=== PATIENT | male | born 1940 | race Caucasian/White ===

== ENCOUNTER 2017-03-12 23:31 | Inpatient (IN) | payer SELFPAY ==
[~2017-03-12] VITALS: Ht 152.4 cm; Wt 68.5 kg
[2017-03-13] MEDS ORDERED: METHYLPREDNISOLONE SOD SUCC 125 MG/2 ML VIAL IV STA (02:29)
[2017-03-13] MEDS ORDERED: ALBUTEROL (0.083%) 2.5MG/3ML NEB HHN STA (02:29)
[2017-03-13] MEDS ORDERED: IPRATROPIUM BROMIDE (0.02%) 0.5MG/2.5ML NEB HHN STA (02:29)
[2017-03-13 02:45] LABS: BASOPHILS % 0.6 % (0.0-2.0); EOSINOPHILS % 0.6 % (0.0-5.0); HEMATOCRIT. 33.3 % (42.0-52.0); HEMOGLOBIN. 11.6 g/dL (14.0-18.0); LYMPHOCYTES % 11.1 % (20.0-50.0); MEAN CORPUSCULAR HEMOGLOBIN 36.2 pg (28.0-32.0); MEAN CORPUSCULAR VOLUME 103.8 fL (80.0-94.0); MEAN PLATELET VOLUME 7.9 fl (7.4-10.4); MONOCYTES % 10.1 % (2.0-8.0); NEUTROPHILS % 77.6 % (40.0-76.0); PLATELET 137 x1000/uL (130-400); RED BLOOD CELL COUNT 3.21 mill/uL (4.7-6.1); RED CELL DISTRIBUTION WIDTH 13.9 % (11.6-14.6)
[2017-03-13 03:04] LABS: CARBON DIOXIDE 24 mEq/L (21-32); TROPONIN I 0.03 ng/mL (0.00-0.04)
[2017-03-13 03:11] LABS: CHLORIDE 108 mEq/L (98-107)
[2017-03-13] MEDS ORDERED: DIPHENHYDRAMINE 50MG/ML VIAL IV PRN (09:30)
[2017-03-13] MEDS ORDERED: ONDANSETRON HCL 4MG/2ML VIAL IV PRN (09:30)
[2017-03-13] MEDS ORDERED: ACETAMINOPHEN 325MG TABLET PO PRN (09:30)
[2017-03-13] MEDS ORDERED: MAGNESIUM/ALUMINUM HYDROXIDE/SIMETHICONE 30ML UDC PO PRN (09:30)
[2017-03-13] MEDS ORDERED: LORAZEPAM 0.5MG TABLET PO PRN (09:30)
[2017-03-13] MEDS ORDERED: IPRATROPIUM/ALBUTEROL 0.5-3(2.5)MG/3ML NEB INH PRN (09:30)
[2017-03-13] MEDS ORDERED: DOCUSATE SODIUM 100MG CAPSULE PO PRN (09:30)
[2017-03-13] MEDS ORDERED: NA PHOS,M-B/NA PHOS,DI-BA ENEMA 118ML PR PRN (09:30)
[2017-03-13] MEDS ORDERED: NITROGLYCERIN 0.4MG TABLET SL SL PRN (09:30)
[2017-03-13] MEDS ORDERED: TRAMADOL 50MG TABLET PO PRN (09:30)
[2017-03-13] MEDS ORDERED: CLONIDINE 0.1MG TABLET PO PRN (09:30)
[2017-03-13] MEDS ORDERED: DILTIAZEM HCL 60MG TABLET PO SCH (10:45)
[2017-03-13 12:20] LABS: T4 FREE 1.32 ng/dL (0.76-1.46)
[2017-03-13 12:30] VITALS: BP 100/82
[2017-03-13] MEDS: ENOXAPARIN 40MG/0.4ML SYR SUBCUT SCH (12:51)
[2017-03-13] MEDS ORDERED: ATOR20TA65 PO (14:02)
[2017-03-13] MEDS ORDERED: CARV25TA47 PO (14:02)
[2017-03-13] MEDS ORDERED: ASPI-1158 PO (14:02)
[2017-03-13] MEDS ORDERED: WARF2TAB55 PO (14:02)
[2017-03-13] MEDS ORDERED: LISI40TA4 PO (14:02)
[2017-03-13 15:55] LABS: CREATINE KINASE MB FRACTION 1.8 ng/mL (0.5-3.6); TROPONIN I 0.02 ng/mL (0.00-0.04)
[2017-03-13 16:00] VITALS: BP 124/91
[2017-03-13 16:43] LABS: VITAMIN B12 SERUM > 2000 pg/mL (211-911)
[2017-03-13] MEDS: FUROSEMIDE 40MG/4ML VIAL IVP SCH (17:16)
[2017-03-13] MEDS: DILTIAZEM HCL 60MG TABLET PO SCH (17:16)
[2017-03-13 20:00] VITALS: BP 133/74
[2017-03-13] MEDS: FAMOTIDINE 20MG/2ML VIAL IV SCH (20:51)
[2017-03-13] MEDS: SPIRONOLACTONE 25MG TABLET PO SCH (20:52)
[2017-03-13] MEDS ORDERED: ZOLPIDEM TARTRATE 5MG TABLET PO PRN (21:00)
[2017-03-14] VITALS: BP 115/76
[2017-03-14 00:56] LABS: CREATINE KINASE MB FRACTION 3.3 ng/mL (0.5-3.6)
[2017-03-14 01:00] LABS: TROPONIN I 0.04 ng/mL (0.00-0.04)
[2017-03-14 04:00] VITALS: BP 132/60
[2017-03-14] MEDS: DILTIAZEM HCL 60MG TABLET PO SCH ×4 (05:26→16:54)
[2017-03-14] MEDS: GUAIFENESIN 200MG/10ML SUGAR FREE UDC PO PRN (05:40)
[2017-03-14] MEDS: FUROSEMIDE 40MG/4ML VIAL IVP SCH ×2 (06:57→17:20)
[2017-03-14 07:10] LABS: BASOPHILS % 0.1 % (0.0-2.0); HEMATOCRIT. 35.5 % (42.0-52.0); HEMOGLOBIN. 12.1 g/dL (14.0-18.0); LYMPHOCYTES % 7.7 % (20.0-50.0); MEAN CORPUSCULAR HEMOGLOBIN 35.4 pg (28.0-32.0); MEAN CORPUSCULAR VOLUME 103.5 fL (80.0-94.0); MEAN PLATELET VOLUME 9.1 fl (7.4-10.4); MONOCYTES % 8.5 % (2.0-8.0); NEUTROPHILS % 83.7 % (40.0-76.0); PLATELET 147 x1000/uL (130-400); RED BLOOD CELL COUNT 3.43 mill/uL (4.7-6.1); RED CELL DISTRIBUTION WIDTH 13.5 % (11.6-14.6)
[2017-03-14 07:16] LABS: INR 3.5
[2017-03-14 08:00] VITALS: BP 126/90
[2017-03-14 08:14] LABS: CARBON DIOXIDE 24 mEq/L (21-32); CHLORIDE 105 mEq/L (98-107); TROPONIN I 0.05 ng/mL (0.00-0.04)
[2017-03-14] MEDS: FAMOTIDINE 20MG/2ML VIAL IV SCH ×2 (08:31→21:34)
[2017-03-14] MEDS: SPIRONOLACTONE 25MG TABLET PO SCH ×2 (08:32→21:34)
[2017-03-14] MEDS: ASPIRIN 325MG EC TABLET PO SCH (08:32)
[2017-03-14 12:00] VITALS: BP 147/72
[2017-03-14] MEDS ORDERED: MAGNESIUM 2 G PREMIX 50 ML IV NR (12:00)
[2017-03-14] MEDS: MAGNESIUM OXIDE 400MG TABLET PO SCH (13:06)
[2017-03-14] MEDS: ENOXAPARIN 40MG/0.4ML SYR SUBCUT SCH (13:07)
[2017-03-14 16:00] VITALS: BP 126/57
[2017-03-14 20:00] VITALS: BP 117/52
[2017-03-15] VITALS: BP 127/71
[2017-03-15 04:00] VITALS: BP 134/64
[2017-03-15] MEDS: FUROSEMIDE 40MG/4ML VIAL IVP SCH (06:13)
[2017-03-15] MEDS: DILTIAZEM HCL 60MG TABLET PO SCH ×2 (06:13)
[2017-03-15 07:16] LABS: PROTHROMBIN TIME 31.4 sec (9.4-11.6)
[2017-03-15 07:25] LABS: CARBON DIOXIDE 27 mEq/L (21-32); CHLORIDE 104 mEq/L (98-107)
[2017-03-15 07:47] LABS: BASOPHILS % 0.1 % (0.0-2.0); HEMATOCRIT. 35.4 % (42.0-52.0); HEMOGLOBIN. 12.3 g/dL (14.0-18.0); LYMPHOCYTES % 11.3 % (20.0-50.0); MEAN CORPUSCULAR HEMOGLOBIN 35.9 pg (28.0-32.0); MEAN CORPUSCULAR VOLUME 103.2 fL (80.0-94.0); MEAN PLATELET VOLUME 9.4 fl (7.4-10.4); MONOCYTES % 7.7 % (2.0-8.0); NEUTROPHILS % 80.9 % (40.0-76.0); PLATELET 146 x1000/uL (130-400); RED BLOOD CELL COUNT 3.43 mill/uL (4.7-6.1); RED CELL DISTRIBUTION WIDTH 13.5 % (11.6-14.6)
[2017-03-15 08:00] VITALS: BP 129/69
[2017-03-15] MEDS: MAGNESIUM OXIDE 400MG TABLET PO SCH (09:30)
[2017-03-15] MEDS: ASPIRIN 325MG EC TABLET PO SCH (09:30)
[2017-03-15] MEDS: SPIRONOLACTONE 25MG TABLET PO SCH (09:30)
[2017-03-15] MEDS: FAMOTIDINE 20MG/2ML VIAL IV SCH (09:30)
[2017-03-15] MEDS: GUAIFENESIN 200MG/10ML SUGAR FREE UDC PO PRN (09:39)
[2017-03-15 12:00] VITALS: BP 118/70
[2017-03-15 12:57] VITALS: BP 118/70
[2017-03-15] MEDS ORDERED: DILTIAZEM HCL 30MG TABLET PO SCH (14:00)
[2017-03-15] MEDS ORDERED: WARFARIN SODIUM 5MG TABLET PO SCH (18:00)
== END 2017-03-15 13:35 | disposition home or self-care (01) | DRG 194 ==
LOC: ER 23:40 → 5WST 03-13 04:59 → EDBEDREQ 03-13 05:03 → EDBEDREQTM 03-13 05:03 → SUPCPDRO 03-13 09:29 → ENRESERV 03-13 10:50
PROVIDERS: ADMIT Internal Medicine; ATTEND Internal Medicine
DX: I11.0 Hypertensive heart disease with heart failure (principal); I48.1 Persistent atrial fibrillation; D64.9 Anemia, unspecified; E83.51 Hypocalcemia; I25.10 Atherosclerotic heart disease of native coronary artery without angina pectoris; E83.42 Hypomagnesemia; I50.43 Acute on chronic combined systolic (congestive) and diastolic (congestive) heart failure; R00.1 Bradycardia, unspecified; Z79.01 Long term (current) use of anticoagulants; Z87.891 Personal history of nicotine dependence; Z95.1 Presence of aortocoronary bypass graft; Z79.899 Other long term (current) drug therapy
CPT/HCPCS: 36415; 71010; 80048; 80061; 82550; 82553; 82607; 82746; 83036; 83540; 83550; 83735; 83880; 84439; 84443; 84484; 85025; 85610; 93005; 93306; 93970; 96374; 99285; J1650; J1940; J2930; J3475; J3490; J7040